=== PATIENT | male | born 1970 | race Caucasian/White ===

== ENCOUNTER 2016-07-19 09:49 | Emergency (ER) | payer OTHER ==
[~2016-07-19] VITALS: Ht 185.4 cm; Wt 100.5 kg
[2016-07-19 09:53] VITALS: TEMP 36.5; Ht 185.4 cm; Wt 100.5 kg
[2016-07-19] MEDS ORDERED: MELO7.5T5 PO (10:30)
[2016-07-19] MEDS ORDERED: ACET-1256 PO (10:30)
[2016-07-19] MEDS ORDERED: METHYLPREDNISOLONE 125 MG VIAL IM STA (10:51)
[2016-07-19] MEDS ORDERED: HYDROmorphone INJ 2 MG/ML SYR/VIAL IM STA (10:51)
[2016-07-19] MEDS ORDERED: LORAZEPAM 1 MG TAB SL STA (10:51)
--- NOTE | 2016-07-19 11:05 | EMERGENCY ROOM VISIT NOTE ---
History Report prepared by Sachi: Crys Crowder Under the Supervision of: Dr. Jess Flores M.D. First contact with patient: 10:31 Chief Complaint: BACK PAIN Stated Complaint: BACK PAIN History of Present Illness The patient is a 46 year old male who presents to the Emergency Room with complaints of constant lower back pain beginning a couple of days ago. The patient complains of right hip pain and muscle tightness and reports that he is not able to lift his right leg. He states that he has a history of lower back pain over the last 6 years but this is slightly worse than before. He denies any groin pain, urinary symptoms, and weakness. 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 He rates his pain as a 10/10 in severity yesterday and he states that he was not able to walk. Source of History: patient Onset: a couple of days ago Position: back (lower) Timing: constant Associated Symptoms: No urinary symptoms, No weakness Note: He complains of right hip pain and muscle tightness. Denies any groin pain. Review of Systems See HPI for pertinent positives & negatives. A total of 10 systems reviewed and were otherwise negative. Past Medical & Surgical Medical Problems: (1) No chronic problems Family History Relation not specified for: Diabetes mellitus Heart disease Hypertension Kidney disease Kidney stones Social History Smoking Status: Never Smoker Smokeless Tobacco Use: No Alcohol Use: occasionally Marital Status: Housing Status: lives with family Occupation Status: employed Current/Historical Medications Scheduled Prednisone (Prednisone), 10 MG PO DIRECTED Scheduled PRN Acetaminophen (Tylenol), 1,000 MG PO Q6 PRN for Pain Cyclobenzaprine Hcl (Flexeril), 10 MG PO TID PRN for Muscle Spasms Hydrocodone/Acetaminophen 5MG/325MG ([place] 5MG/325MG), 1 TABLET PO q4-6 hrs PRN for Pain Meloxicam (Mobic), 15 MG PO DAILY PRN for Pain Allergies Coded Allergies: No Known Allergies (Unverified , 07/19/16) Physical Exam Vital Signs Date Time Temp Pulse Resp B/P Pulse Ox O2 Delivery O2 Flow Rate FiO2 07/19/16 13:17 80 18 152/91 99 07/19/16 12:43 62 18 145/94 96 Room Air 07/19/16 09:53 36.5 62 20 152/102 96 Room Air Physical Exam Vital signs reviewed. General: Well-appearing, in no significant distress. HEENT: No scleral icterus, PERRLA, neck supple. Atraumatic. Cardiovascular: Regular rate and rhythm, no extra sounds. Pulmonary: Clear to auscultation bilaterally, normal work of breathing. Abdomen: Soft, nontender, nondistended, positive bowel sounds. Musculoskeletal: Atraumatic, no peripheral edema. Minimal tenderness to palpation over the right paraspinous muscles and right buttock. Some discomfort for straight leg raise. Neurologic: Patient awake alert and oriented x 3, full strength in all 4 extremities. Skin: Warm, dry, no rash Medical Decision & Procedures ER Provider Diagnostic Interpretation: MRI results as stated below per my review and radiologist interpretation: LUMBAR SPINE MRI FINDINGS: For the purpose of the report the L5-S1 disc space will be located on axial image 23 of 25. Straightening of the lumbar spine. Alignment is intact. No fracture or subluxation. The conus terminates at the T12 level. Paraspinal soft tissues are unremarkable. Mild disc desiccation L5-S1. The disc heights are relatively preserved. L1-L2: No significant central canal or neural foraminal narrowing. L2-L3: Small broad-based posterior disc bulge without significant central canal or neural foraminal narrowing. L3-L4: Small broad-based posterior disc bulge without significant central canal or neural foraminal narrowing. L4-L5: Small broad-based posterior disc bulge asymmetric to the left. This abuts the transiting left L5 nerve root. This results in minimal central canal narrowing. No significant neural foraminal narrowing. L5-S1: No significant central canal or neural foraminal narrowing. IMPRESSION: 1. No fracture or dislocation within the lumbar spine. 2. Straightening of the lumbar spine. This may represent muscular spasm. 3. Minor degenerative changes as described above. This is most pronounced at the L4-L5 level where there is a small broad-based posterior disc bulge asymmetric to the left which abuts the transiting left L5 nerve root. Electronically signed by: Jian Garcia M.D. 07/19/2016 12:48 PM Dictated Date/Time: 07/19/2016 12:42 PM Medications Administered Medications (Trade) Dose Ordered Sig/Marvin Route Start Time Stop Time Status Last Admin Dose Admin Methylprednisolone Sodium Succinate (Solu-Medrol IV) 125 mg NOW STAT IM 07/19/16 10:51 07/19/16 10:54 DC 07/19/16 11:04 125 MG Lorazepam (Ativan Tab) 2 mg NOW STAT SL 07/19/16 10:51 07/19/16 10:54 DC 07/19/16 11:04 2 MG Hydromorphone HCl (Dilaudid Inj) 2 mg NOW STAT IM 07/19/16 10:51 07/19/16 10:54 DC 07/19/16 11:05 2 MG ED Course 1037: Past medical records reviewed. The patient was evaluated in room C9. A complete history and physical examination was performed. 1051: Dilaudid Inj 2mg IM, Ativan Tab 2mg SL, Solu-Medrol IV 125mg IM. 1311: I reevaluated and updated the patient. 1319: Upon reevaluation, the patient appeared to have improvement of his symptoms. I discussed findings with the patient. He verbalized agreement of the treatment plan. The patient was discharged home. Medical Decision Differential diagnosis: Etiologies such as musculoskeletal, disc herniation, fracture, aortic disease, metastatic disease, cord compression, discitis, infection, renal colic, gastrointestinal, acute exacerbation of chronic back pain, sciatica, cauda equina, as well as others were entertained. Medication Reconciliation: I attest that I have personally reviewed the patient' s current medication list. Blood Pressure Screening: Patient was found to have slightly high blood pressure for his age but is likely secondary to pain. He will be following up with his doctor. This patient was evaluated and appeared to be in no significant distress. Patient states he has had multiple lumbar spine films through his primary care provider. He has been missing a significant amount work secondary to the pain. MRI was performed and is read as above. He was feeling much improved after the Solu-Medrol, Dilaudid and Ativan. Patient was placed on a steroid taper, when necessary Flexeril. He was given a short prescription for [place] to be used as needed for severe pain. Pt was d/c to the care of her PCP this week for reevaluation. Return to the ED for worsening of symptoms or any medical concerns. [place] Drug Monitoring Program Search Results: patient reviewed within database Drug Monitoring Findings: No matching patient identified. Impression Primary Impression: Right lumbar radiculopathy Additional Impression: Herniation of left side of L4-L5 intervertebral disc Scribe Attestation The scribe's documentation has been prepared under my direction and personally reviewed by me in its entirety. I confirm that the note above accurately reflects all work, treatment, procedures, and medical decision making performed by me. Departure Information Dispostion Home / Self-Care Prescriptions Prednisone (Prednisone) 10 Mg Tab 10 MG PO DIRECTED, #31 TAB 40 mg daily for 4 days, 30 mg daily for 3 days, 20 mg for 2 days, 10 mg for 2 days Prov: Jess Flores M.D. 07/19/16 Hydrocodone/Acetaminophen 5MG/325MG ([place] 5MG/325MG) Tab 1 TABLET PO q4-6 hrs Y for Pain, #14 TAB Prov: Jess Flores M.D. 07/19/16 Cyclobenzaprine Hcl (FLEXERIL) 10 Mg Tab 10 MG PO TID Y for Muscle Spasms, #21 TAB Prov: Jess Flores M.D. 07/19/16 Referrals Eamon Baez PA-C (PCP) Forms HOME CARE DOCUMENTATION FORM, IMPORTANT VISIT INFORMATION Patient Instructions My [facility] Additional Instructions Diagnosis: Lumbar radiculopathy, L4-5 his current herniation Prednisone 40 mg daily for 4 days, 30 mg daily for 3 days, 20 mg daily for 2 days, 10 mg daily for 2 days Flexeril 10 mg 3 times a day as needed for muscular spasm. [place] one tablet every 4 hours as needed for severe pain. Do not drive or take Tylenol with this medication. Warm compresses and gentle stretching for relief of her discomfort. Follow-up with Dr. Corrales of orthopedic spine for reevaluation as well as her primary care physician. Return to the emergency department for worsening of symptoms or any medical concerns. Problem Qualifiers
--- NOTE | 2016-07-19 12:50 | DIAGNOSTIC IMAGING REPORT ---
LUMBAR SPINE MRI HISTORY: Left lumbar radiculopathy TECHNIQUE: Multiplanar multisequence MRI of the lumbar spine was performed without the use of contrast. COMPARISON: None. FINDINGS: For the purpose of the report the L5-S1 disc space will be located on axial image 23 of 25. Straightening of the lumbar spine. Alignment is intact. No fracture or subluxation. The conus terminates at the T12 level. Paraspinal soft tissues are unremarkable. Mild disc desiccation L5-S1. The disc heights are relatively preserved. L1-L2: No significant central canal or neural foraminal narrowing. L2-L3: Small broad-based posterior disc bulge without significant central canal or neural foraminal narrowing. L3-L4: Small broad-based posterior disc bulge without significant central canal or neural foraminal narrowing. L4-L5: Small broad-based posterior disc bulge asymmetric to the left. This abuts the transiting left L5 nerve root. This results in minimal central canal narrowing. No significant neural foraminal narrowing. L5-S1: No significant central canal or neural foraminal narrowing. IMPRESSION: 1. No fracture or dislocation within the lumbar spine. 2. Straightening of the lumbar spine. This may represent muscular spasm. 3. Minor degenerative changes as described above. This is most pronounced at the L4-L5 level where there is a small broad-based posterior disc bulge asymmetric to the left which abuts the transiting left L5 nerve root. Electronically signed by: Jian Garcia M.D. 07/19/2016 12:48 PM Dictated Date/Time: 07/19/2016 12:42 PM
[2016-07-19] MEDS ORDERED: PRED10TA PO (13:09)
[2016-07-19] MEDS ORDERED: HYDR-5688 PO (13:09)
[2016-07-19] MEDS ORDERED: CYCL10TA6 PO (13:09)
[2016-07-19 13:17] VITALS: BP 152/91; PULSE 80; O2SAT 99
== END 2016-07-19 13:19 | disposition home or self-care (01) ==
LOC: C.EDB 09:52 → C.EDC 13:19
DX: M54.16 Radiculopathy, lumbar region (principal); M51.26 Other intervertebral disc displacement, lumbar region; Z83.3 Family history of diabetes mellitus; Z82.49 Family history of ischemic heart disease and other diseases of the circulatory system; Z84.1 Family history of disorders of kidney and ureter

== ENCOUNTER → 2016-08-15 | Outpatient (CLI) | payer OTHER ==
[~2016-08-15] MED LIST: ACET-1256 PO; HYDR-5688 PO; MELO7.5T5 PO; PRED10TA PO
[2016-08-15 17:28] LABS: GLUCOSE 90 mg/dl (70-99)
[2016-08-15 17:34] LABS: CHOLESTEROL 178 mg/dl (0-200); CHOLESTEROL/HDL RATIO 4.7; HDL CHOLESTEROL 38 mg/dl; TRIGLYCERIDES 197 mg/dl (0-150); VERY LOW DENSITY LIPOPROT CALC 39 mg/dl
== END | disposition home or self-care (01) ==
LOC: C.LABPBG 15:24
PROVIDERS: ATTEND Physician Assistant Medical
DX: Z00.00 Encounter for general adult medical examination without abnormal findings (principal)